=== PATIENT | female | born 1990 | race Caucasian/White ===

== ENCOUNTER 2016-11-23 08:49 | Day surgery (SDC) ==
--- NOTE | 2016-11-23 08:35 | HISTORY AND PHYSICAL ---
HISTORY OF PRESENT ILLNESS: This is a 26-year-old female who underwent orthognathic surgery approximately 10 years ago. She has actually had no complications since. She now presents in the last week complaining of an ulceration on the left base of the tongue. Clinical evaluation shows a probable tip of a screw on the lingual aspect of the left mandibular ramus. The 2 tips are very small actually and approximately 1-2 mm in size. The tissue is very thin and mobile over this area. PAST MEDICAL HISTORY: None. MEDICATIONS: None. PAST SURGICAL HISTORY: Orthognathic surgery approximately 10 years ago. ALLERGIES: To penicillin, Ceclor, and Ceftin. FAMILY HISTORY: Mother living and healthy. Father living and healthy. PHYSICAL EXAMINATION: GENERAL: This is a well-developed, well-nourished, white female, in no acute distress. HEENT: PERRL, EOMI. Sclerae clear. Fundi appear benign. Ears: TMs bilaterally clear. Oral cavity: Dentition in great repair. There are no soft tissue lesions. There is no tongue ulceration on examination today. Lingual palpation of the ramus shows 2 prominent sharp areas along the deeper lingual left ramus. There is no penetration through the soft tissue. NECK: Supple without masses. Negative lymphadenopathy or jugular venous distention. CARDIOVASCULAR: Regular rate and rhythm without murmur, gallop, or rub. LUNGS: Bilateral breath sounds. Clear to auscultation. ABDOMEN: Nontender, nondistended. /GI: Deferred. BACK: Negative CVAT. IMPRESSION AND PLAN: This is a healthy 26-year-old female with old hardware which has become tender. We discussed the risks versus benefits of removal. We will plan for surgical removal of hardware or recontouring and removal of partial screw tips.
[2016-11-23] MEDS ORDERED: LR 1,000 ML ONE ×2 (09:45→14:41)
[2016-11-23] MEDS ORDERED: XYLOCAINE 1%/EPI 1:100,000 ONE (10:37)
[2016-11-23] MEDS ORDERED: NEO-SYNEPHRINE 1% NASAL SPRAY ONE (11:45)
[2016-11-23] MEDS ORDERED: CLINDAMYCIN 900 MG/NS 50 ML ONE (12:01)
[2016-11-23] MEDS ORDERED: FENTANYL ONE (13:46)
[2016-11-23] MEDS ORDERED: DIPRIVAN 1% ONE (13:47)
[2016-11-23] MEDS ORDERED: VERSED ONE (13:48)
[2016-11-23] MEDS ORDERED: CHLORASEPTIC SPRAY MT PRN (13:50)
[2016-11-23] MEDS ORDERED: QUELICIN (DOSE) ONE (14:41)
[2016-11-23] MEDS ORDERED: ZOFRAN ONE (14:41)
[2016-11-23] MEDS ORDERED: DECADRON ONE (14:41)
[2016-11-23] MEDS ORDERED: XYLOCAINE-MPF 2% ONE (14:41)
[2016-11-23] MEDS ORDERED: LUBRIFRESH PM OPH OINTMENT ONE (14:41)
[2016-11-23] MEDS ORDERED: TORADOL ONE (14:41)
[2016-11-23 14:57] VITALS: BP 112/60
--- NOTE | 2016-11-25 04:37 | OPERATIVE NOTE ---
PROCEDURE DATE: 11/23/2016 PREOPERATIVE DIAGNOSIS: Left mandibular traumatic screw from old surgical procedure. POSTOPERATIVE DIAGNOSIS: Left mandibular traumatic screw from old surgical procedure. PROCEDURES: 1. Surgical removal of proximal 2 mm Torrey Arsen screw. 2. Attempted removal of medial Torrey Arsen screw but subsequently removed the extended tip lingual recontour down to the surface of the mandibular bone. POSTOPERATIVE COMPLICATIONS: None. ANESTHESIA: General endotracheal, nasal intubation. ESTIMATED BLOOD LOSS: Less than 5 mL. PROCEDURE IN DETAIL: The patient was identified in same-day surgery and taken to the operating room, where she was placed in supine position. After IV access was reassured the patient was induced under general anesthesia. The patient was then prepped and draped in the usual sterile fashion. Attention was turned to the oral cavity where Betadine along with sterile saline was used to scrub the oral cavity. A throat pack was placed prior to this irrigation. This throat pack was removed at the end of the procedure. Attention was turned to the left mandibular ramus where 10 mL of 1% Xylocaine with 1:100,000 epinephrine was infiltrated along the medial ramus at the neurovascular bundle and also lateral to the ramus. Attention was turned to the ascending ramus where a #15 scalp blade was used to make incision starting midway up the ramus going inferiorly then anteriorly to the tooth #18. A sulcular incision was extended bilaterally around the left mandibular teeth up to the 1st bicuspid area. Periosteal elevator was used to reflect the lingual periosteum and gingiva of the teeth. Dissection was taken down almost to the inferior border of the mandible and deep into the medial ramus area where 2 screw tips were exposed. One screw tube was approximately 1 mm long the other one was approximately 1.5 mm to 2 mm long. Dissection was then taken lateral elevating the periosteum and the gingiva from the lateral aspect of the left mandibular ramus and body. The screw heads were identified. A percutaneous stab incision was placed in left cheek and a trocar entered through. A #702 tapered fissure bur was used to remove the bone covering the proximal screw head. A screwdriver was then used to meticulously rotate the screw and subsequently completely remove the screw. Attention was turned to the more distal screw where again, the bone covering the screw head was removed. This screw was found to be integrated to the bone. Repeated attempts to turn the screw was unsuccessful. The head was stripped. Attention was then turned to the lingual aspect where the screw was through the lingual ramus approximately 1 mm. A pear-shaped bur was used to contour this tip down to the mandibular ramus bone and leaving the tip of the screw flush with the adjacent bone. Bone fragments were copiously irrigated. The surgical site was copiously irrigated bilaterally. The mucosa was repositioned and closed in interrupted fashion using 3-0 gut suture. A cushion type head dressing was placed. Throat pack was removed. The stomach was suctioned using the NG tube. The patient tolerated procedure without any complication and was transferred to recovery in satisfactory condition.
== END 2016-11-23 15:05 | disposition home or self-care (01) ==
LOC: OR 08:49
PROVIDERS: ATTEND Dentist Oral and Maxillofacial Surgery
DX: Z47.2 Encounter for removal of internal fixation device (principal); K14.0 Glossitis
CPT/HCPCS: J0330; J1100; J1885; J2250; J2405; J3010; J7120; S0077